=== PATIENT | female | born 1995 | race Caucasian/White ===

== ENCOUNTER 2018-08-06 18:21 | Emergency (ER) | payer OTHER ==
[2018-08-06] MEDS: ACETAMINOPHEN 500 MG TAB PO (19:49)
[2018-08-06] MEDS: DIPHTH/TET/ACEL PERTUSS (ADULT) 0.5 ML VIAL IM* (19:50)
[2018-08-06] MEDS: AMOXICILLIN/CLAV 875 MG TAB PO (21:29)
== END 2018-08-06 21:35 | disposition home or self-care (01) ==
LOC: FTE 18:21
DX: S61.255A Open bite of left ring finger without damage to nail, initial encounter (principal); W54.0XXA Bitten by dog, initial encounter; Y92.9 Unspecified place or not applicable; Z23 Encounter for immunization
CPT/HCPCS: 29130; 73140; 90471; 90715; 99283-25